=== PATIENT | male | born 1960 ===

== ENCOUNTER 2019-05-12 00:21 | Emergency (ER) ==
[2019-05-12] MEDS ORDERED: ALBUTEROL 2.5 MG/3 ML NEB SOL ONE (01:23)
[2019-05-12] MEDS ORDERED: NA CHLORIDE 0.9% 1,000 ML ONE (01:23)
--- NOTE | 2019-05-12 02:53 | ER ---
Nurse's Notes [facility] Name: Leo Boston Age: 59 yrs Sex: Male : 1960 Arrival Date: 05/12/2019 Time: 00:25 Bed 28 Private MD: Diagnosis: Presentation: 05/12 00:46 Presenting complaint: states: "He started having difficulty breathing about an tr5 hour ago. He is a smoker and has been drinking tonight.". Transition of care: patient was not received from another setting of care. Onset of symptoms was May 12, 2019. Risk Assessment: Do you want to hurt yourself or someone else? Patient reports no desire to harm self or others. Initial Sepsis Screen: Does the patient meet any 2 criteria? No. Patient's initial sepsis screen is negative. Care prior to arrival: None. 00:46 Method Of Arrival: Ambulatory tr5 00:46 Acuity: SHANTE 3 tr5 Historical: - Allergies: 00:50 No Known Allergies; tr5 - Home Meds: 00:50 Unable to obtain [Active]; tr5 - PMHx: 00:50 Unable to obtain; tr5 - Immunization history:: Adult Immunizations. - Social history:: Smoking status: Patient uses tobacco products, smokes one pack cigarettes per day. Patient uses alcohol, on a daily basis. - Ebola Screening: : No symptoms or risks identified at this time. - Family history:: not pertinent. - Hospitalizations: : No recent hospitalization is reported. Screenin:52 Abuse screen: Denies threats or abuse. Nutritional screening: No deficits noted. tr5 Tuberculosis screening: No symptoms or risk factors identified. Fall Risk None identified. Assessment: 00:52 General: Appears in no apparent distress. Behavior is drowsy, Smells of alcohol, tr5 Reports feeling ill for 0-12 hours. Pain: Denies pain. Pain does not radiate. Neuro: Level of Consciousness is lethargic, Oriented to person. Cardiovascular: Heart tones present Capillary refill < 3 seconds Rhythm is regular. Respiratory: Reports shortness of breath Airway is patent Respiratory effort is even, Respiratory pattern is symmetrical, Breath sounds with wheezes bilaterally. GI: No signs and/or symptoms were reported involving the gastrointestinal system. : No signs and/or symptoms were reported regarding the genitourinary system. EENT: No signs and/or symptoms were reported regarding the EENT system. Derm: No signs and/or symptoms reported regarding the dermatologic system. Vital Signs: 00:50 BP 136 / 75; Pulse 76; Resp 25; Temp 98.2(O); Pulse Ox 94% on R/A; Weight 92.99 kg; tr5 Height 5 ft. 8 in. (172.72 cm); 01:42 BP 135 / 70; Pulse 78; Resp 22; Pulse Ox 98% on R/A; tr5 00:50 Body Mass Index 31.17 (92.99 kg, 172.72 cm) tr5 ED Course: 00:25 Patient arrived in ED. cl3 00:30 Parviz Isbell, SHIRA is Primary Nurse. tr5 00:36 Oracio Jernigan MD is Attending Physician. ut 00:48 Triage completed. tr5 00:50 Arm band placed on Patient placed. EKG completed in triage. Results shown to MD. EKG tr5 completed in triage. Results shown to MD. 00:52 Placed in gown. Bed in low position. Call light in reach. Side rails up X 1. Cardiac tr5 monitor on. Pulse ox on. NIBP on. 01:09 XRAY Chest (1 view) In Process Unspecified. EDMS Administered Medications: No medications were administered Outcome: 02:52 Patient left the ED. ak1 Signatures: Dispatcher [employer] EDMS Eda Rodriguez RN RN ak1 Oracio Jernigan MD MD wa Rodriguez, Tommie, RN RN tr5 Mejia Lamb cl3
--- NOTE | 2019-05-12 02:53 | EDPHYS ---
Physician Documentation [facility] Name: Leo Boston Age: 59 yrs Sex: Male : 1960 Arrival Date: 05/12/2019 Time: 00:25 Bed 28 Private MD: ED Physician Oracio Jernigan HPI: 05/12 02:42 This 59 yrs old Male presents to ER via Ambulatory with complaints of Chest Pain. wa 02:42 The patient or guardian reports chest pain that is located primarily in the substernal wa area. Onset: today. The pain does not radiate. Associated signs and symptoms: Pertinent positives: shortness of breath, Pertinent negatives: diaphoresis, dizziness, headache. The chest pain is described as aching. Duration: The patient or guardian reports a single episode, that is still ongoing, and worsening. Modifying factors: The symptoms are alleviated by. Severity of pain: At its worst the pain was mild in the emergency department the pain is unchanged. The patient has not experienced similar symptoms in the past. The patient has not recently seen a physician. pt ETOH and smoking. c/o SOB and chest pain. Historical: - Allergies: 00:50 No Known Allergies; tr5 - Home Meds: 00:50 Unable to obtain [Active]; tr5 - PMHx: 00:50 Unable to obtain; tr5 - Immunization history:: Adult Immunizations. - Social history:: Smoking status: Patient uses tobacco products, smokes one pack cigarettes per day. Patient uses alcohol, on a daily basis. - Ebola Screening: : No symptoms or risks identified at this time. - Family history:: not pertinent. - Hospitalizations: : No recent hospitalization is reported. ROS: 02:45 Constitutional: Negative for fever, chills, and weight loss, Eyes: Negative for injury, wa pain, redness, and discharge, ENT: Negative for injury, pain, and discharge, Neck: Negative for injury, pain, and swelling, Abdomen/GI: Negative for abdominal pain, nausea, vomiting, diarrhea, and constipation, Back: Negative for injury and pain, : Negative for injury, bleeding, discharge, and swelling, MS/Extremity: Negative for injury and deformity, Skin: Negative for injury, rash, and discoloration, Neuro: Negative for headache, weakness, numbness, tingling, and seizure. 02:45 Cardiovascular: Positive for chest pain, Negative for edema, orthopnea, palpitations, paroxysmal nocturnal dyspnea. 02:45 Respiratory: Positive for shortness of breath, Negative for hemoptysis, orthopnea. 02:45 All other systems are negative. Exam: 02:47 Constitutional: This is a well developed, well nourished patient who is awake, alert, wa and in no acute distress. Head/Face: Normocephalic, atraumatic. Eyes: Pupils equal round and reactive to light, extra-ocular motions intact. Lids and lashes normal. Conjunctiva and sclera are non-icteric and not injected. Cornea within normal limits. Periorbital areas with no swelling, redness, or edema. ENT: Nares patent. No nasal discharge, no septal abnormalities noted. Tympanic membranes are normal and external auditory canals are clear. Oropharynx with no redness, swelling, or masses, exudates, or evidence of obstruction, uvula midline. Mucous membranes moist. Neck: Trachea midline, no thyromegaly or masses palpated, and no cervical lymphadenopathy. Supple, full range of motion without nuchal rigidity, or vertebral point tenderness. No Meningismus. Chest/axilla: Normal chest wall appearance and motion. Nontender with no deformity. No lesions are appreciated. Abdomen/GI: Soft, non-tender, with normal bowel sounds. No distension or tympany. No guarding or rebound. No evidence of tenderness throughout. Back: No spinal tenderness. No costovertebral tenderness. Full range of motion. Skin: Warm, dry with normal turgor. Normal color with no rashes, no lesions, and no evidence of cellulitis. MS/ Extremity: Pulses equal, no cyanosis. Neurovascular intact. Full, normal range of motion. Neuro: Awake and alert, GCS 15, oriented to person, place, time, and situation. Cranial nerves II-XII grossly intact. Motor strength 5/5 in all extremities. Sensory grossly intact. Cerebellar exam normal. Normal gait. Psych: Awake, alert, with orientation to person, place and time. Behavior, mood, and affect are within normal limits. 02:47 Cardiovascular: Rate: normal, Rhythm: regular, Pulses: no pulse deficits are appreciated, Heart sounds: normal, Edema: is not appreciated, JVD: is not appreciated. 02:47 Respiratory: the patient does not display signs of respiratory distress, Respirations: normal, Breath sounds: wheezing: is scattered, is heard diffusely, Respiratory rate: nml Vital Signs: 00:50 BP 136 / 75; Pulse 76; Resp 25; Temp 98.2(O); Pulse Ox 94% on R/A; Weight 92.99 kg; tr5 Height 5 ft. 8 in. (172.72 cm); 01:42 BP 135 / 70; Pulse 78; Resp 22; Pulse Ox 98% on R/A; tr5 00:50 Body Mass Index 31.17 (92.99 kg, 172.72 cm) tr5 MDM: 00:36 Patient medically screened. in 02:48 Differential diagnosis: acute myocardial infarction, acute pericarditis, coronary wa artery disease chest wall pain, congestive heart failure cholecystitis, costochondritis, pericarditis, pleurisy, pneumonia, pulmonary embolus, stable angina, thoracic aortic disection, unstable angina. 02:49 Differential diagnosis: abnormal EKG, acute myocardial infarction, anxiety, coronary wa artery disease congestive heart failure myocarditis, pericarditis, pneumonia, stable angina, thoracic aortic disection. 02:54 HEART Score: History: Moderately Suspicious (1), ECG: Normal (0), Age: > 45 and < 65 wa years (1), Risk Factors: 1 or 2 risk factors (1), Troponin: < or = 1 x Normal Limit (0), Total Score = 3. 02:54 Data reviewed: vital signs, nurses notes. ED course: pt c/o not wanting to allow for IV wa placement unsuccessful attempts. signed AMA to leave department. risks explained and accepted. 05/12 00:54 Order name: XRAY Chest (1 view) in 05/12 00:54 Order name: EKG; Complete Time: 00:55 in 05/12 00:54 Order name: Cardiac monitoring; Complete Time: 00:56 in 05/12 00:54 Order name: EKG - Nurse/Tech; Complete Time: 00: in 05/12 00:54 Order name: IV Saline Lock; Complete Time: 01: in 05/12 00:54 Order name: Labs collected and sent; Complete Time: 01:19 in 05/12 00:54 Order name: O2 Per Protocol; Complete Time: 00: in 05/12 00:54 Order name: O2 Sat Monitoring; Complete Time: 00:56 wa Administered Medications: No medications were administered Disposition: 05/12/19 02:52 Patient has left against medical advice. - Patients states they are going to Home. - Condition is Stable. Signatures: Dispatcher [employer] Eda Estevez RN RN ak1 Oracio Jernigan MD MD wa Rodriguez, Tommie, RN RN tr5
--- NOTE | 2019-05-12 08:20 | RAD REPORT ---
EXAM DESCRIPTION: RAD - Chest Single View - 05/12/2019 1:09 am CLINICAL HISTORY: chest pain. SOB Chest pain. COMPARISON: No comparisons FINDINGS: Portable technique limits examination quality. Mild bilateral pulmonary opacities are present likely representing mild pulmonary edema or pneumonia. Trace pleural fluid suspected bilaterally. The heart is mildly enlarged in size. No displaced fractu res.
--- NOTE | 2019-05-12 08:22 | EKG ---
Test Date: 2019-05-12 Test Time: 00:41:54 Market Research Associate: TR MEASUREMENT RESULTS: Intervals: Rate: 77 IA: 130 QRSD: 80 QT: 372 QTc: 420 [place]: P: 69 IA: 130 QRS: 65 T: 61 INTERPRETIVE STATEMENTS: Normal sinus rhythm Normal ECG No previous ECG available for comparison Electronically Signed On 05-12-19 08:21:34 FLIGHT OPERATIONS COORDINATOR by Nathaniel Campa
== END 2019-05-12 02:52 | disposition left against medical advice (07) ==
LOC: ER 00:21
DX: R06.02 Shortness of breath (principal); F17.210 Nicotine dependence, cigarettes, uncomplicated
CPT/HCPCS: 71045; 93005; 99284; J7030